=== PATIENT | male | born 1955 | race Caucasian/White ===

== ENCOUNTER 2017-01-05 16:33 | Emergency (ER) | payer MEDICAID, OTHER ==
[~2017-01-05] VITALS: Ht 175.3 cm; Wt 77.0 kg
[2017-01-05 17:10] LABS: BASOPHILS % 0.3 % (0.0-2.0); EOSINOPHILS % 0.5 % (0.0-7.0); HEMATOCRIT 41.4 % (42.0-52.0); LYMPHOCYTES % 13.3 % (15.0-51.0); MEAN CORPUSCULAR HGB CONC 33.8 g/dl (32.0-37.0); MEAN CORPUSCULAR VOLUME 88.7 fl (82.0-101.0); MEAN PLATELET VOLUME 10.4 fl (7.4-10.4); MONOCYTE # 0.5 10^3/ul (0.3-0.9); MONOCYTES % 5.9 % (0.0-11.0); NEUTROPHILS % 79.7 % (39.0-77.0); PLATELET COUNT 167 10^3/UL (140-415); RED BLOOD COUNT 4.67 10^6/ul (4.70-6.10); RED CELL DISTRIBUTION WIDTH 12.1 % (11.5-14.5); WHITE BLOOD COUNT 7.6 10^3/ul (4.8-10.8)
[2017-01-05 17:11] VITALS: Ht 175.3 cm; Wt 77.0 kg
[2017-01-05 17:31] LABS: ALANINE AMINOTRANSFERASE 94 IU/L (13-69); ALBUMIN 3.9 g/dl (3.3-4.9); ALKALINE PHOSPHATASE 89 IU/L (42-121); ANION GAP 10 (8-16); ASPARTATE AMINO TRANSFERASE 153 IU/L (15-46); BLOOD UREA NITROGEN 18 mg/dl (7-20); CALCIUM 9.1 mg/dl (8.4-10.2); CARBON DIOXIDE 29 mmol/L (21-31); CHLORIDE 103 mmol/L (97-110); CREATININE 1.21 mg/dl (0.61-1.24); GLUCOSE 160 mg/dl (70-220); POTASSIUM 4.4 mmol/L (3.5-5.1); SODIUM 138 mmol/L (135-144); TOTAL PROTEIN 6.9 g/dl (6.1-8.1)
[2017-01-05 17:44] LABS: TROPONIN-I < 0.012 ng/ml (0.00-0.12)
--- NOTE | 2017-01-05 17:59 | ERA ---
ER Documentation Chief Complaint Date/Time DATE: 01/05/17 TIME: 17:55 Chief Complaint chest pain that resolved upon arrival to er HPI This is a 61-year-old male who presents to the emergency room complaining of epigastric abdominal pain. The patient states that prior to arrival he was at work. He states that he has been working a significant amount not getting much sleep. He started to note mild diffuse cramping abdominal discomfort with mild associated nausea and diaphoresis. He had a single episode of nonbloody nonbilious emesis and then had a bowel movement with complete resolution of symptoms. During the abdominal cramping he felt like the pain radiated up into his chest. He denied any chest pressure. He states complete resolution of symptoms but went to an urgent care who sent him to the emergency room. The patient is symptom-free currently. He states that he has had a negative stress test within the past year. He does not have a primary care physician. ROS All systems reviewed and are negative except as per history of present illness. FmHx Family History: diabetes Physical Exam Vitals Vital Signs Date Time Temp Pulse Resp B/P Pulse Ox O2 Delivery O2 Flow Rate FiO2 01/05/17 17:11 97.8 64 18 111/66 96 01/05/17 17:00 Nasal Cannula 2 Physical Exam General: Well developed, well nourished, no acute distress Head: Normocephalic, atraumatic. Eyes: Pupils equally reactive, EOM intact ENT: Moist mucous membranes Neck: Supple, no lymphadenopathy Respiratory: Lungs clear bilaterally, no distress Cardiovascular: RRR, no murmurs, rubs, or gallops Abdominal: Soft, non-tender, non-distended, no peritoneal signs, Negative Matson sign, no tenderness to McBurney's point : Deferred MSK: No edema, no unilateral swelling, 5/5 strength Neurologic: Alert and oriented, moving all extremities, normal speech, no focal weakness, no cerebellar signs Skin: No rash Psych: Normal mood Result Diagram: 01/05/17 1700 01/05/17 1700 Results 24 hrs Laboratory Tests Test 01/05/17 17:00 White Blood Count 7.610^3/ul Red Blood Count 4.6710^6/ul Hemoglobin 14.0g/dl Hematocrit 41.4% Mean Corpuscular Volume 88.7fl Mean Corpuscular Hemoglobin 30.0pg Mean Corpuscular Hemoglobin Concent 33.8g/dl Red Cell Distribution Width 12.1% Platelet Count 60318^3/UL Mean Platelet Volume 10.4fl Neutrophils % 79.7% Lymphocytes % 13.3% Monocytes % 5.9% Eosinophils % 0.5% Basophils % 0.3% Nucleated Red Blood Cells % 0.0/100WBC Neutrophils # (Manual) 6.110^3/ul Lymphocytes # 1.010^3/ul Monocytes # 0.510^3/ul Eosinophils # 0.010^3/ul Basophils # 0.010^3/ul Nucleated Red Blood Cells # 0.010^3/ul Sodium Level 138mmol/L Potassium Level 4.4mmol/L Chloride Level 103mmol/L Carbon Dioxide Level 29mmol/L Anion Gap 10 Blood Urea Nitrogen 18mg/dl Creatinine 1.21mg/dl Glucose Level 160mg/dl Calcium Level 9.1mg/dl Total Bilirubin 1.0mg/dl Direct Bilirubin 0.00mg/dl Indirect Bilirubin 1.0mg/dl Aspartate Amino Transf (AST/SGOT) 153IU/L Alanine Aminotransferase (ALT/SGPT) 94IU/L Alkaline Phosphatase 89IU/L Troponin I < 0.012ng/ml Total Protein 6.9g/dl Albumin 3.9g/dl Globulin 3.00g/dl Albumin/Globulin Ratio 1.30 Lipase 948U/L Procedures/MDM EKG, MONITORS, & DIAGNOSTIC IMAGING: Clinic EKG EKG: I reviewed and interpreted a 12-lead EKG. Rhythm: Normal sinus rhythm Ectopy: None Intervals: No abnormalities ST segments: No elevations or depressions T waves: No contiguous inversions ER EKG EKG: I reviewed and interpreted a 12-lead EKG. Rhythm: Normal sinus rhythm Ectopy: None Intervals: No abnormalities ST segments: No elevations or depressions T waves: No contiguous inversions EMS rhythm strip Rhythm strip: Rate/Rhythm: Normal Sinus Rhythm Impression: No evidence of ischemia or arrhythmia Chest x-ray: I reviewed and interpreted a 1 view of the chest Mediastinum: No enlargement Cardiac silhouette: No cardiomegaly Airspace: Clear lung tran bilaterally without evidence of pneumothorax Bones: No evidence of fracture LAB INTERPRETATION: Negative troponin, nonspecific lipase elevation in the 900s, nonspecific slight transaminitis, normal bilirubin and alk phos MEDICAL DECISION MAKING: The patient's history, physical exam and clinical presentation is concerning for possible cardiogenic etiology and acute coronary syndrome. Based on the patient's clinical exam and history and risk factors, I have a much lower clinical concern for pulmonary embolism, acute aortic dissection, pneumothorax, pneumonia, cardiac tamponade HEART Score: 3 MACE Rate: Less than 1.7% Shared Decision Making: We had a conversation regarding risk stratification, MACE rate, and the risks, benefits, alternatives of disposition planning options. Disposition planning: Given that the patient does not have a primary care physician with nonspecific presentation I did recommend inpatient hospitalization for risk stratification, serial enzymes. However, the patient feels strongly about going home. He verbalizes understanding of Mace rate and the possibility that this is cardiac in etiology. He states that he will follow -up with a local clinic and return for any worsening symptoms. He feels that his symptoms are more related to GI process and overexertion and overworking. The patient has capacity and verbalizes understanding of risks. ER COURSE: The patient received aspirin prior to arrival. He is asymptomatic in the emergency room. His description is not truly cardiogenic however given the patient's age epigastric abdominal pain could represent cardiac ischemia. However, the patient's EKGs are normal his troponin is negative. I believe this is more likely related to a GI process and possible vagal process. The patient has complete resolution of symptoms. He does have a nonspecific transaminitis and lipase elevation in the 900s but does not exhibit clinical signs of acute pancreatitis. This is likely nonspecific and needs to be followed closely as an outpatient. He has no pain that warrants inpatient hospitalization and no indication for CT imaging of the abdomen and pelvis. I do not believe this is consistent with choledocholithiasis given normal bilirubin and normal alkaline phosphatase. The patient was advised that he needs follow-up with a primary care physician and repeat labs within 1 week. He was advised to return for any chest pain or worsening symptoms. The patient will be leaving despite my recommendation for him to stay. I kept the patient and/or family informed of laboratory and diagnostic imaging results throughout the emergency room course. DISPOSITION PLAN: We discussed follow up with the patient's primary care doctor within 24 to 48 hours as needed. We also discussed return to the emergency room for worsening symptoms or worsening condition. Outpatient referral: Primary care physician Departure Diagnosis: Primary Impression: Chest pain Qualified Code: R07.9 - Chest pain, unspecified type Additional Impression: Vomiting Qualified Code: R11.2 - Non-intractable vomiting with nausea, unspecified vomiting type Condition: Stable Patient Instructions: Chest Pain, Uncertain Cause, Vomiting (8Y-Adult) Referrals: [facility] YOU HAVE RECEIVED A MEDICAL SCREENING EXAM AND THE RESULTS INDICATE THAT YOU DO NOT HAVE A CONDITION THAT REQUIRES URGENT TREATMENT IN THE EMERGENCY DEPARTMENT. FURTHER EVALUATION AND TREATMENT OF YOUR CONDITION CAN WAIT UNTIL YOU ARE SEEN IN YOUR DOCTORS OFFICE WITHIN THE NEXT 1-2 DAYS. IT IS YOUR RESPONSIBILITY TO MAKE AN APPOINTMENT FOR FOLOW-UP CARE. IF YOU HAVE A PRIMARY DOCTOR --you should call your primary doctor and schedule an appointment IF YOU DO NOT HAVE A PRIMARY DOCTOR YOU CAN CALL OUR PHYSICIAN REFERRAL HOTLINE AT IF YOU CAN NOT AFFORD TO SEE A PHYSICIAN YOU CAN CHOSE FROM THE FOLLOWING [facility] [address] [facility]. [facility] [address] [facility] [facility] [address] [facility] [address] [facility] [address] [facility]. [facility] [address] [facility]. [facility] YOU HAVE RECEIVED A MEDICAL SCREENING EXAM AND THE RESULTS INDICATE THAT YOU DO NOT HAVE A CONDITION THAT REQUIRES URGENT TREATMENT IN THE EMERGENCY DEPARTMENT. FURTHER EVALUATION AND TREATMENT OF YOUR CONDITION CAN WAIT UNTIL YOU ARE SEEN IN YOUR DOCTORS OFFICE WITHIN THE NEXT 1-2 DAYS. IT IS YOUR RESPONSIBILITY TO MAKE AN APPOINTMENT FOR FOLOW-UP CARE. IF YOU HAVE A PRIMARY DOCTOR --you should call your primary doctor and schedule and appointment IF YOU DO NOT HAVE A PRIMARY DOCTOR YOU CAN CALL OUR PHYSICIAN REFERRAL HOTLINE AT . IF YOU CAN NOT AFFORD TO SEE A PHYSICIAN YOU CAN CHOSE FROM THE FOLLOWING [facility] INSTITUTIONS: [facility] [address] [place] [address] [facility] [address] [place] [address] [facility] + [address] [place] [address] Additional Instructions: It is very important that you follow-up with primary care physician. Additionally, you need to have repeat blood work including your lipase within 1 week. He should return to the emergency room for any worsening symptoms, abdominal pain or back pain. LEIGH BOYD MD Jan 05, 2017 17:59
--- NOTE | 2017-01-05 18:02 | RADRPT ---
PROCEDURE: Portable chest x-ray. CLINICAL INDICATION: 61 years of age, male. Chest pain. TECHNIQUE: Portable AP view of the chest. COMPARISON: None available. FINDINGS: Tortuous aorta. Borderline heart size. Lung volumes are markedly decreased with vascular crowding versus mild edema. Bibasilar lung opaciti es may represent atelectasis, aspiration or pneumonia. Negative for pleural effusion or pneumothorax. No acute bony abnormality. IMPRESSION: Markedly decreased lung volumes with vascular crowding versus mild edema. Bibasilar lung opacities m ay represent atelectasis, aspiration or pneumonia. RPTAT: HCTS Physician Kim Date Time Electronically viewed and signed by Physician Kim on 01/05/2017 18:01 /
== END 2017-01-05 18:07 | disposition home or self-care (01) ==
LOC: E/R 16:33
DX: R07.9 Chest pain, unspecified (principal); R11.2 Nausea with vomiting, unspecified
CPT/HCPCS: 36415; 71010; 80053; 83690; 84484; 85025; 93005; Z7502